=== PATIENT | female | born 1990 | race African-American/Black ===

== ENCOUNTER 2018-02-18 16:12 | Emergency (ER) | payer SELFPAY ==
--- NOTE | 2018-02-18 16:51 | ED Physician Documentation ---
Psychological Disorders - HISTORIAN Historian: patient - HPI Chief Complaint: Psychological Disorder Additional Information: extremely depressed, suicidal has plans. onset months years ago no prev tx. voice very qiet tears run down cheek has been to [facility] here. lives sw/ mom - is - in [facility]. he is unaware of condition. pt says ' I have shut him out like everyone else". does agree3 she would like some help. she has had no prev psyche help but would like us to get help for her. Onset: other (months - years) Duration: intermittent, constant Intent: suicide, wants to escape, prior thoughts of suicide, other (has multi plans--uncle once pulled lher back from [place]). denies: no prior thoughts Situational Problems: No (pt will not comment) - Associated Symptoms Symptoms: depressed, frustrated Suicidal: specific plan Ingestion: wanted to "escape" Mechanism: other (multiple) - ROS CONST: none NEURO/PSYCH: anxiety, depression EYES/ENT: none CVS/RESP: none GI/: denies: nausea, vomiting, abdominal pain - PAST HX Psychiatric problems: depression, psychiatric problems, other (has hit things w / fist bumped head kicked things. this all exaberated few weeks ago when had argument w/ another person-not family or close friend). 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) - VITAL SIGNS Vital Signs: Vital Signs Temp Pulse Resp BP Pulse Ox 97.9 F 101 H 17 143/80 98 02/18/18 16:20 02/18/18 16:20 02/18/18 16:20 02/18/18 16:20 02/18/18 16:20 - REVIEWED ASSESSMENTS Nursing Assessment Reviewed: Yes Vitals Reviewed: Yes ED Results Lab/Radiology - Lab Results Lab Results: Lab Results 02/18/18 02/18/18 02/18/18 19:50 16:50 16:50 WBC 9.20 K/ul K/ul (4.00-12.00) RBC 5.78 M/ul H M/ul (3.90-5.20) Hgb 13.4 g/dL g/dL (12.0-16.0) Hct 46.3 % % (34.5-46.5) MCV 80.1 fl fl (80.0-100.0) MCH 23.2 pg L pg (28.0-34.0) MCHC 29.0 g/dL L g/dL (30.0-36.0) RDW 14.8 % H % (11.3-14.3) Plt Count 335 K/mm3 K/mm3 (130-400) Neut % (Auto) 72.6 % % (39.0-79.0) Lymph % (Auto) 19.7 % % (16.0-50.0) [place] % (Auto) 3.8 % % (0.0-11.0) Eos % (Auto) 2.5 % % (0.0-6.8) Baso % (Auto) 0.2 (0.0-1.5) Neut # (Auto) 6.7 # k/uL # k/uL (1.4-7.7) Lymph # (Auto) 1.8 # k/uL # k/uL (0.6-4.0) [place] # (Auto) 0.4 # k/uL # k/uL (0.0-0.9) Eos # (Auto) 0.2 # k/uL # k/uL (0.0-0.6) Baso # (Auto) 0.0 # k/uL # k/uL (0.0-0.5) Reactive Lymphs % 1.2 % % (0.0-5.0) Reactive Lymphs # 0.1 # k/uL # k/uL (0.0-0.8) Sodium 142 mmol/L mmol/L (136-145) Potassium 3.7 mmol/L mmol/L (3.5-5.1) Chloride 107 mmol/L mmol/L (98-107) Carbon Dioxide 21 mmol/L L mmol/L (22-30) BUN 13 mg/dL mg/dL (7-17) Creatinine 0.80 mg/dL mg/dL (0.52-1.04) Estimated Creat Clear 159 Est GFR ( Amer) > 60 (60 - ) Est GFR (Non-Af Amer) > 60 (60 - ) Glucose 86 mg/dL mg/dL (74-106) Calcium 9.9 mg/dL mg/dL (8.4-10.2) Total Bilirubin 1.0 mg/dL mg/dL (0.2-1.3) AST 17 U/L U/L (15-46) ALT 22 U/L U/L (13-69) Alkaline Phosphatase 75 U/L U/L (38-126) Total Protein 9.1 g/dL H g/dL (6.3-8.2) Albumin 5.0 g/dL g/dL (3.5-5.0) Urine HCG, Qual Opiates Screen Negative ng/mL ng/mL (<300) Oxycodone Screen Negative ng/mL ng/mL (<100) Methadone Screen Negative ng/mL ng/mL (<200) Acetaminophen < 10.0 ug/mL L ug/mL (10-30) Ur Barbiturates Screen Negative ng.mL ng.mL (<200) Tricyclic Antidepress Negative ng/mL ng/mL (<300) Phencyclidine Screen Negative ng/mL ng/mL (< 25) Amphetamines Screen Negative ng/mL ng/mL (<500) U Methamphetamines Scrn Negative ng/mL ng/mL (<500) MDMA Negative ng/mL ng/mL (<500) Benzodiazepines Screen Negative ng/mL ng/mL (<150) Urine Cocaine Screen Negative ng/mL ng/mL (<150) U Cannabinoids Screen Non negative ng/mL H ng/mL (< 50) 02/18/18 16:33 WBC RBC Hgb Hct MCV MCH MCHC RDW Plt Count Neut % (Auto) Lymph % (Auto) [place] % (Auto) Eos % (Auto) Baso % (Auto) Neut # (Auto) Lymph # (Auto) [place] # (Auto) Eos # (Auto) Baso # (Auto) Reactive Lymphs % Reactive Lymphs # Sodium Potassium Chloride Carbon Dioxide BUN Creatinine Estimated Creat Clear Est GFR ( Amer) Est GFR (Non-Af Amer) Glucose Calcium Total Bilirubin AST ALT Alkaline Phosphatase Total Protein Albumin Urine HCG, Qual Negative (NEGATIVE) Opiates Screen Oxycodone Screen Methadone Screen Acetaminophen Ur Barbiturates Screen Tricyclic Antidepress Phencyclidine Screen Amphetamines Screen U Methamphetamines Scrn MDMA Benzodiazepines Screen Urine Cocaine Screen U Cannabinoids Screen - Orders Orders: ED Orders Category Date Time Status ACETAMINOPHEN LEVEL Routine Lab 02/18/18 16:50 Completed CBC/PLATELET/DIFF Routine Lab 02/18/18 16:50 Completed CMP Routine Lab 02/18/18 16:50 Completed DRUG SCREEN URINE MEDICAL ONLY Routine Lab 02/18/18 19:50 Completed SALICYLATE LEVEL Routine Lab 02/18/18 16:50 Received URINE HCG Stat Lab 02/18/18 16:33 Completed Psych Physical Exam - Physical Exam General Appearance: moderate distress, severe distress, lethargic, obtunded. No : anxious ENT: nml ENT inspection Eyes: PERRL Mental Status: tearful. No: mood/affect nml Suicide Attempts: admit, still contemplating Orientation: nml x3. No: uncooperative Cranial Nerves: No: facial drooping, CN abnormality Sensory, Motor: nml motor response, nml sensory response Neck/Back: normal inspection Respiratory: no resp distress, chest non-tender, breath sounds normal. No: rales, rhonchi Abdomen: non-tender Skin: warm/dry, normal color. No: cyanosis, diaphoresis, jaundice, mottled Extremities: non-tender, normal range of motion, no evidence of injury (says pinky rt hand sore from [facility]) Discharge Clincal Impression: suicide ideation-plan, very marked depression Referrals: Primary Doctor,No [Primary Care Provider] - 2 Days Comments: this is first suicide medical encounter with this patient. it appears good progress is possible w/ this patient Condition: Fair Disposition: 02 XFER SHT-TRM HOSP Decision to Admit: [id number] Decision Time: 18:19
[2018-02-18 17:00] LABS: BASOPHILS % 0.2 (0.0-1.5); EOSINOPHILS % 2.5 % (0.0-6.8); MEAN CORPUSCULAR HEMOGLOBIN 23.2 pg (28.0-34.0); MEAN CORPUSCULAR VOLUME 80.1 fl (80.0-100.0); MONOCYTES % 3.8 % (0.0-11.0); NEUTROPHILS # 6.7 # k/uL (1.4-7.7)
[2018-02-18 17:13] VITALS: BP 143/80
[2018-02-18 17:14] LABS: eGFR (African) > 60; eGFR (Non-African) > 60
[2018-02-18 17:43] LABS: URINE HCG NEGATIVE (NEGATIVE)
[2018-02-18 17:44] LABS: CANNABINOIDS NON NEGATIVE ng/mL (< 50); METHYLENEDIOXYMETHAMPHETAMINE NEGATIVE ng/mL (<500)
[2018-02-19 06:51] LABS: APPEARANCE,URINE CLEAR (CLEAR); COLOR,URINE AMBER (YELLOW); OCCULT BLOOD,URINE 2+ (NEGATIVE); PH URINE 5.5 (5.0 - 8.0)
[2018-02-19 06:52] LABS: UROBILINOGEN URINE 0.2 Eu (0.2-1.0)
== END 2018-02-18 19:15 | disposition left against medical advice (07) ==
LOC: ED 16:12
DX: F32.9 Major depressive disorder, single episode, unspecified (principal); R45.851 Suicidal ideations
CPT/HCPCS: 80053; 80377; 81002; 81025; 85025; 99285; G0481